=== PATIENT | male | born 1950 | race Caucasian/White ===

== ENCOUNTER → 2019-12-01 | Outpatient (CLI) | payer OTHER ==
[~2019-12-01] VITALS: Ht 180.3 cm; Wt 93.0 kg
[~2019-12-01] MED LIST: ASPIR-LOW81 MG PO; AZOR 5-20 MG T1 EACH PO; LIPITOR40 MG PO; MULTI VITAMIN1 EACH PO
--- NOTE | 2019-12-01 17:37 | P ---
[facility] [place] [address] PROCEDURE REPORT Name: ELVIA RAINES Room #: [facility]#: [id number] Admission: 12/01/19 Attend Phys: Keyur Decker MD Discharge: Date of : 50 Report #: [id number] THIS REPORT FOR: cc: Jordan Thompson MD,Keyur Garcia MD, MD ~ CC: Keyur Thompson MD DATE OF SERVICE: 12/01/2019 BRIEF HISTORY: The patient is a 69-year-old male with family history of colon cancer in mother, age 74 per the patient report. PREOPERATIVE DIAGNOSIS: Family history of colon cancer. POSTOPERATIVE DIAGNOSES: 1. Uhjwavly-[id number] left-sided diverticular disease with few scattered diverticula in proximal colon. 2. Small internal hemorrhoids. MEDICATIONS: Deep sedation with propofol per anesthesia. SPECIMEN: None. ESTIMATED BLOOD LOSS: None. PROCEDURE: Colonoscopy to cecum and terminal ileum. FINDINGS: Prior to propofol sedation, procedure of colonoscopy discussed with the patient as well as potential risks and its complications. He indicates he understands and desires to proceed. DESCRIPTION OF PROCEDURE: With the patient in left lateral decubitus position, digital examination was completed and revealed no abnormalities. Subsequently, Olympus video colonoscope was introduced into the rectum, advanced under direct vision to the cecum. Done with minimal difficulty. The cecum was identified by the ileocecal valve and the appendiceal orifice. I was able to visualize the distal segment of the terminal ileum, which was inspected and noted to be unremarkable. At that point, the scope was slowly withdrawn and careful circumferential views were obtained including retroflexion of the scope in the ascending colon. Upon slow withdrawal of the scope, the prep was good. The mucosa within normal limits, normal vascular pattern, normal light reflex. As we withdrew the scope, no neoplastic lesions were seen. There was some frothy material in the colon, which was cleaned up with simethicone solution and [facility] [address] [address] PROCEDURE REPORT Name: ELVIA RAINES Room #: [facility]#: [id number] Admission: 12/01/19 Attend Phys: Keyur Decker MD Discharge: Date of : 50 Report #: [id number] irrigation. The mucosa was within normal limits, normal vascular pattern, normal light reflex. A few scattered diverticula seen in the proximal colon. He was noted to have moderately severe diverticular disease in the sigmoid colon without endoscopic evidence of diverticulitis. Scope was withdrawn in the rectum, no abnormalities were seen. Upon retroflexion, very small internal hemorrhoids were seen. The scope was withdrawn. The patient tolerated the procedure well. CONDITION OF THE PATIENT UPON DISCHARGE: Following procedure, the patient drowsy, arousable and conversant and will be discharged home when fully ambulatory. INSTRUCTIONS TO THE PATIENT AND FAMILY AT THE TIME OF DISCHARGE: No neoplastic lesions seen today. It is noted that his mother had colon cancer per the patient report at age 74. He has had 2 previous colonoscopies. No neoplastic lesions were seen. Followup colonoscopy in 10 years would be reasonable for this patient. He will return to care of Dr. Thompson and return to see me as needed. Last colonoscopy was 5 years ago. Withdrawal time from the cecum was 15 minutes 39 seconds. <ELECTRONICALLY SIGNED> By: Keyur Decker MD 12/01/19 [id number] Keyur Decker MD /nt
== END | disposition home or self-care (01) ==
LOC: GI 11-03 12:57
DX: Z12.11 Encounter for screening for malignant neoplasm of colon (principal); Z80.0 Family history of malignant neoplasm of digestive organs; K57.30 Diverticulosis of large intestine without perforation or abscess without bleeding; K64.8 Other hemorrhoids; I10 Essential (primary) hypertension; E78.5 Hyperlipidemia, unspecified; G47.30 Sleep apnea, unspecified; Z85.828 Personal history of other malignant neoplasm of skin; Z87.891 Personal history of nicotine dependence; Z98.890 Other specified postprocedural states; Z79.899 Other long term (current) drug therapy; Z88.0 Allergy status to penicillin; Z79.82 Long term (current) use of aspirin
CPT/HCPCS: 62110; 62900